=== PATIENT | female | born 1960 | race Caucasian/White ===

== ENCOUNTER 2021-06-18 18:23 | Inpatient (IN) | payer OTHER ==
[~2021-06-18] VITALS: Ht 160 cm; Wt 88.0 kg
[~2021-06-18 18:23] MED LIST: CELEXA20 MG PO; COREG 6.25MG6.25 MG PO; ELIQUIS5 MG PO; METFORMIN HCL500 MG PO; MICRONASE5 MG PO; NORVASC5 MG PO
[2021-06-18 18:47] LABS: BASOPHIL 1.2 % (0-2); EOSINOPHIL 2.7 % (0-5); HCT 46.3 % (37.0-47.0); HGB 15.6 g/dl (12.5-16.0); LYMPHOCYTE 29.7 % (15-48); MCH 29.2 pg (25.0-31.0); MCHC 33.7 g/dL (32.0-36.0); MCV 86.5 fL (78.0-100.0); MONOCYTE 6.8 % (0-12); MPV 10.1 fL (6.0-9.5); NEUTROPHIL 59.1 % (41-80); NRBC 0; PLT 260 K/uL (150-400); RBC 5.35 M/uL (4.20-5.40); RDW 12.8 % (11.5-14.0); WBC 6.6 K/uL (4.0-10.5)
[2021-06-18 19:05] LABS: INR 1.02 (0.9-1.2); PROTHROMBIN TIME 12.8 SECONDS (11.8-13.4); PTT 38.7 SECONDS (24.4-34.7)
[2021-06-18 19:08] LABS: BUN/CREAT RATIO (CALC) 23.2 RATIO; CREATININE 0.69 mg/dL (0.51-0.95)
[2021-06-18 19:44] LABS: CORONAVIRUS 2019 SARS-COV-2 NEGATIVE (NEGATIVE); INFLUENZA A NAA NEGATIVE (NEGATIVE)
[2021-06-19 05:58] LABS: BASOPHIL 1.6 % (0-2); EOSINOPHIL 2.4 % (0-5); HCT 45.9 % (37.0-47.0); HGB 15.8 g/dl (12.5-16.0); LYMPHOCYTE 25.2 % (15-48); MCH 29.4 pg (25.0-31.0); MCHC 34.4 g/dL (32.0-36.0); MCV 85.5 fL (78.0-100.0); MONOCYTE 7.5 % (0-12); MPV 10.3 fL (6.0-9.5); NEUTROPHIL 62.8 % (41-80); NRBC 0; PLT 266 K/uL (150-400); RBC 5.37 M/uL (4.20-5.40); RDW 12.8 % (11.5-14.0); WBC 8.2 K/uL (4.0-10.5)
[2021-06-19 06:34] LABS: ALBUMIN 3.7 g/dL (3.4-5.0); BILIRUBIN - TOTAL 0.5 mg/dL (0.2-1.0); BUN/CREAT RATIO (CALC) 21.4 RATIO; CREATININE 0.56 mg/dL (0.51-0.95); GLOBULIN (CALCULATION) 3.1 g/dL; MAGNESIUM 2.1 mg/dL (1.8-2.4); POTASSIUM 3.8 mmol/L (3.5-5.1); TOTAL PROTEIN 6.8 g/dL (6.4-8.2)
[2021-06-21 06:28] LABS: EOSINOPHIL 3.2 % (0-5); HCT 43.9 % (37.0-47.0); LYMPHOCYTE 23.2 % (15-48); MCH 29.3 pg (25.0-31.0); MCHC 34.2 g/dL (32.0-36.0); MCV 85.7 fL (78.0-100.0); MONOCYTE 12.2 % (0-12); MPV 10.3 fL (6.0-9.5); NEUTROPHIL 59.8 % (41-80); NRBC 0; PLT 226 K/uL (150-400); RBC 5.12 M/uL (4.20-5.40); RDW 12.8 % (11.5-14.0)
[2021-06-21 06:47] LABS: BUN/CREAT RATIO (CALC) 12.1 RATIO; CREATININE 0.58 mg/dL (0.51-0.95); POTASSIUM 3.1 mmol/L (3.5-5.1)
[2021-06-21 06:49] LABS: MAGNESIUM 1.5 mg/dL (1.8-2.4)
[2021-06-21] MEDS ORDERED: LOPRESSOR50 MG PO (10:01)
== END 2021-06-21 12:54 | disposition other institution (70) | DRG 310 ==
LOC: FER 18:23 → FTCU 21:35
PROVIDERS: Internal Medicine; Nurse Practitioner; ADMIT Internal Medicine
DX: I48.20 Chronic atrial fibrillation, unspecified (principal); Z20.822 Contact with and (suspected) exposure to COVID-19; I11.9 Hypertensive heart disease without heart failure; E11.65 Type 2 diabetes mellitus with hyperglycemia; F32.A Depression, unspecified; Z90.49 Acquired absence of other specified parts of digestive tract; Z90.710 Acquired absence of both cervix and uterus; Z98.890 Other specified postprocedural states
CPT/HCPCS: 36415; 71045; 80048; 80053; 80061; 82962; 83036; 83735; 84145; 84439; 84443; 84484; 85025; 85610; 85730; 93005; J0360; J3475; J7030; J7050; U0002